=== PATIENT | female | born 1995 | race Caucasian/White ===

== ENCOUNTER 2017-05-01 10:09 | Emergency (ER) | payer SELFPAY ==
[2017-05-01 11:36] LABS: URINE BLOOD (Dip) POC 2+ (NEGATIVE); URINE GLUCOSE (Dip) POC Negative (NEGATIVE); URINE KETONES (Dip) POC Trace (NEGATIVE); URINE LEUKOCYTE EST (Dip) POC 1+ (NEGATIVE); URINE NITRITE (Dip) POC Negative (NEGATIVE); URINE TOTAL PROTEIN POC 2+ (NEGATIVE)
[2017-05-01] MEDS: IBUPROFEN 200 MG TAB PO (11:39)
[2017-05-01] MEDS: PHENAZOPYRIDINE 100 MG TAB PO (11:52)
[2017-05-01] MEDS: CEPHALEXIN 500 MG CAP PO (11:53)
== END 2017-05-01 13:45 | disposition home or self-care (01) ==
LOC: FTE 10:09
DX: R30.0 Dysuria (principal); R10.2 Pelvic and perineal pain
CPT/HCPCS: 81003; 99283